=== PATIENT | female | born 1970 | race Caucasian/White ===

== ENCOUNTER 2018-04-23 08:27 | Outpatient (CLI) | payer BC ==
--- NOTE | 2018-04-23 10:04 | MRI ---
MRI LUMBAR SPINE WITHOUT CONTRAST: INDICATIONS: History of intervertebral disk disorder with radiculopathy. The patient is having right-sided low ba ck pain that radiates to the upper spine and neck and into the right arm. COMPARISON: No radiographic or MRI comparisons are available. TECHNIQUE: Multiplanar, multisequence MR images were obtained of the lumbar spine without IV contrast. FINDINGS: The bone marrow signal intensity is within normal limits. There is a small suspected bony hemangioma within the L5, L3, and L1 vertebral levels. There is loss of the normal disk signal height at L3-L4 . The conus is seen to terminate at approximately L1. The visualized retroperitoneal and paravertebral soft tissues are normal appearing. At L5-S1, there is moderate left and mild right facet joint degenerative change. There is a mild bro ad-based disk bulge. No definite central canal or neural foraminal narrowing is demonstrated. At L4-L5, there is a broad-based bulge with facet hypertrophy, causing mild neural foramina encroachm ent without nerve root impingement. At L3-L4, there is a broad-based bulge with facet hypertrophy and ligamentum flavum hypertrophy, kashif cing mild central canal narrowing and mild narrowing of the neural foramina, without definite nerve r oot impingement At L2-L3, there is a broad-based bulge with mild facet joint degenerative change but no appreciable c entral canal or neural foraminal narrowing. At L1-L2, there is a mild broad-based bulge without appreciable central canal or neural foraminal nithin rowing. At T12-L1, there is no appreciable central canal or neural foraminal narrowing. IMPRESSION: Mild spondylosis of the lumbar spine, most advanced at L3-L4, where there is mild bilateral neural fo raminal narrowing and mild central canal narrowing. POS: [facility]
--- NOTE | 2018-04-23 11:49 | MRI ---
MRI CERVICAL SPINE WITHOUT CONTRAST: HISTORY: Cervical disk disorder. Right-sided lower back pain, radiating up the spine and into the neck, with radiation down the right arm. COMPARISON: None. TECHNIQUE: An MRI of the cervical spine is performed without contrast. Reformatted images are submitted for int erpretation. FINDINGS: Appropriate T1 marrow signal intensity of the cervical vertebrae. Cervical spine vertebral body heig ht is maintained. There is no fracture. There is minimal anterolisthesis of C2 upon C3, C3 upon C4, and C4 upon C5. On the STIR images, there is no significant hyperintensity to suggest ligamentous i njury. No evidence of vertebral body edema. The visualized brain parenchymal, cervicomedullary junction, cervical cord, and upper thoracic cord h ave a normal size and signal intensity. C2-C3: No significant disk osteophyte complex. No significant central canal stenosis. The foramina are patent. C3-C4: No significant disk osteophyte complex. No significant central canal stenosis. The neural f oramina are patent. C4-C5: No significant disk osteophyte complex. No significant central canal stenosis. The right ne ural foramen is patent. Minimal left foraminal narrowing due to degenerative change of the uncoverte bral joint. C5-C6: No significant disk osteophyte complex. No significant central canal stenosis. The foramina are patent. C6-C7: No significant disk osteophyte complex. No significant central canal stenosis. The foramina are patent. C7-T1: No significant disk osteophyte complex. No significant central canal stenosis. The neural f oramina are patent bilaterally. IMPRESSION: No significant central canal stenosis or foraminal narrowing. POS: [facility]
== END 2018-04-23 08:28 | disposition home or self-care (01) ==
LOC: BICMRI 08:27
PROVIDERS: ATTEND Chiropractor
DX: M50.123 Cervical disc disorder at C6-C7 level with radiculopathy (principal); M51.16 Intervertebral disc disorders with radiculopathy, lumbar region; M47.26 Other spondylosis with radiculopathy, lumbar region; M48.061 Spinal stenosis, lumbar region without neurogenic claudication; M99.83 Other biomechanical lesions of lumbar region
CPT/HCPCS: 72141; 72148

== ENCOUNTER 2023-03-12 11:52 | Outpatient (CLI) | payer BC | END 2023-03-12 11:53 | disposition home or self-care (01) | LOC: BICRAD 11:52 | PROVIDERS: ATTEND Nurse Practitioner Community Health | DX: J18.9 Pneumonia, unspecified organism (principal) | CPT/HCPCS: 71046 ==

== ENCOUNTER 2023-09-16 11:10 | Outpatient (CLI) | payer BC | END 2023-09-16 11:11 | disposition home or self-care (01) | LOC: BICRAD 11:10 | PROVIDERS: ATTEND Internal Medicine Rheumatology | DX: M46.1 Sacroiliitis, not elsewhere classified (principal) | CPT/HCPCS: 72202 ==